=== PATIENT | female | born 1980 | race Caucasian/White ===

== ENCOUNTER 2016-10-13 16:38 | Outpatient (CLI) | payer OTHER ==
--- NOTE | 2016-10-13 19:05 | US ---
OB LIMITED HISTORY: Advanced maternal age. Hydronephrosis. SANDY check. Estimated date of delivery 11/17/2016. 35 weeks and 0 days gestation. COMPARISONS: None FINDINGS: Multiple grayscale, color-flow and duplex Doppler images during Limited ultrasound are obtained. A single intrauterine gestation is identified in a cephalic position. Placenta is anterior. Placental grade is 2. SANDY measures 14.8 cm. heart tones are noted 147 bpm. Hydronephrosis is present bilaterally. Left renal pelvis measures 1.1 cm. Right renal pelvis measures 0.7 cm. Stomach, bladder and diaphragm are unremarkable. The remainder the survey is deferred, as was performed on prior exam. IMPRESSION: Normal SANDY. Continued hydronephrosis. Correlation with outside imaging would be recommended. As the patient undoubtably has prior studies at an outside institution, if these could be digitized into the [facility] PACS, a direct comparison could be made and addendum to this report generated as clinically warrented. Findings were called to Dr. Hyman at approximately 1901 hours on 10/13/2016.
== END 2016-10-13 16:39 | disposition home or self-care (01) ==
LOC: FBC 16:38 → FBCOUT 16:38
PROVIDERS: ATTEND Family Medicine
DX: O09.523 Supervision of elderly multigravida, third trimester (principal); O36.8930 Maternal care for other specified fetal problems, third trimester, not applicable or unspecified; O09.213 Supervision of pregnancy with history of pre-term labor, third trimester; Z3A.35 35 weeks gestation of pregnancy
CPT/HCPCS: 76815; 59025; G0463

== ENCOUNTER 2016-10-21 12:30 | Outpatient (CLI) | payer OTHER ==
--- NOTE | 2016-10-21 13:49 | US ---
OB LIMITED HISTORY: SANDY check. COMPARISONS: 10/13/2016 FINDINGS: Multiple grayscale, color-flow and pulsed Doppler images during Limited ultrasound are obtained. A single intrauterine gestation is identified in a vertex position. The heart tones are present at 144 bpm. Estimated date of delivery is 11/17/2016. Fetus is 36 weeks and 1 day gestation. SANDY measures 14.75. Right renal pelvis measures 0.6 cm, measuring 0.7 cm on prior study. Left renal pelvis measures 1.1 cm, stable from prior study. Bladder and stomach are unremarkable. Remainder of the survey is deferred, as was performed on prior exam. IMPRESSION: Normal SANDY. heart tones of 144 bpm. Left greater than right hydronephrosis as above. Follow-up as clinically warranted. Findings were called to the [facility] at approximately 1345 hours on 10/21/2016.
== END 2016-10-21 13:55 | disposition home or self-care (01) ==
LOC: FBCOUT 12:30 → FBC 12:56 → FBCOUT 13:55
PROVIDERS: ATTEND Family Medicine
DX: O35.8XX0 Maternal care for other (suspected) fetal abnormality and damage, not applicable or unspecified (principal); O09.213 Supervision of pregnancy with history of pre-term labor, third trimester; Z3A.36 36 weeks gestation of pregnancy; O09.523 Supervision of elderly multigravida, third trimester

== ENCOUNTER 2016-10-26 17:05 | Outpatient (CLI) | payer OTHER ==
[2016-10-26 17:33] VITALS: BMI 24.0
--- NOTE | 2016-10-26 18:34 | US ---
ADDENDUM #1 A voicemail message was left for Dr. Anaya on 10/26/16 at 2011 hours. ORIGINAL REPORT LIMITED OB ULTRASOUND HISTORY: Assess SANDY. Limited obstetric sonography was performed. Comparison 10/21/2016. 36 weeks 6 days. FINDINGS: INTRAUTERINE GESTATION: Single live intrauterine gestation in cephalic orientation, heart rate 147 beats per minute. SANDY: 9.88 cm, compared to 14.75 cm on prior study. LEFT RENAL PELVIS: 1.6 cm in width, compared to 1.1 cm previously. IMPRESSION: Limited sonography for purposes of determining SANDY. SANDY currently 9.9 cm, at lower end of normal range. Single live intrauterine gestation in cephalic orientation. Redemonstration of left-sided pelviectasis, now 1.6 cm in width, compared to 1.1 cm on prior study.
== END 2016-10-26 18:40 | disposition home or self-care (01) ==
LOC: FBCOUT 17:05 → FBC 17:06 → FBCOUT 18:40
PROVIDERS: ATTEND Family Medicine
DX: O35.8XX0 Maternal care for other (suspected) fetal abnormality and damage, not applicable or unspecified (principal); Z3A.36 36 weeks gestation of pregnancy

== ENCOUNTER 2016-10-27 08:52 | Outpatient (CLI) | payer OTHER ==
[2016-10-27] MEDS ORDERED: LACTATED RINGERS 1,000 ML IV PRN (09:19)
[2016-10-27] MEDS ORDERED: OXYTOCIN IN NS 334 ML IV PRN (09:19)
[2016-10-27] MEDS ORDERED: OXYTOCIN 10 UNITS/ML VIAL ONE (09:54)
[2016-10-27] MEDS ORDERED: LIDOCAINE 1% (PRES FREE) 30 ML VIAL ONE (09:54)
[2016-10-27] MEDS ORDERED: MINERAL OIL 25 ML BOT ONE (09:54)
[2016-10-27 11:18] VITALS: BMI 23.3
[2016-10-27 11:26] LABS: HEMATOCRIT 41.1 % (37.0-47.0); HEMOGLOBIN 13.9 gm/l (12.0-16.0); MEAN CELL VOLUME 84.9 fl (81.0-99.0); MEAN CORPUSCULAR HEMOGLOBIN 28.7 pg (27.0-31.0); MEAN CORPUSCULAR HGB CONC 33.8 g/dl (33.0-37.0); RED CELL DISTRIBUTION WIDTH 13.3 % (11.5-14.5)
[2016-10-27] MEDS ORDERED: ONDANSETRON 4 MG/2ML 2 ML VIAL IV PRN (12:46)
[2016-10-27] MEDS ORDERED: LIDOCAINE Viscous 2% 15 ML UDCUP ONE (13:05)
--- NOTE | 2016-10-27 18:12 | PCMOBT ---
OB Triage - Subjective KATHE CABALLERO is a 36 year old at 38 who presents to L & D triage c/o contractions and possible leakage of fluid. RN did ROM plus and that was negative. She was admitted for observation due to her change in cervix from 1 cm yesterday to 3.5 cm today but her contractions spaced out over the day and her pain level did not escalate as expected for active labor. Review of Systems: Nausea, Movement, LOF, Ctx - Physical Exam General: Other (mild distress due to pain) HEENT: Normocephalic Neurological: Alert, Lethargic, Oriented X4 Respiratory: Clear to Auscultation Cardiac: Regular Rate, Regular Rhythm, No Murmurs Abdomen: Soft, Gravid Extremeties: No Deformities Skin: No Rash Contractions: Present - Pelvic Exam External Genitalia: Normal Appearance Cervix: Other (3.5 cm/60%/-2 per RN) Uterus: Gravid - Heart Tones Baseline: 145 Variability: Moderate Accelerations: Present Decelerations: Non-Present - Assessment/ Plan 36 year old G3 P at 38 here for contractions 1. Not in active labor at this time Return precautions given: including that she should return if she has decreased movement, if she has LOF, vaginal bleeding or contractions such that she thinks she's in labor. Jerry Calix MD
[2016-10-27] MEDS ORDERED: FAMOTIDINE 20 MG TABLET PO SCH (19:00)
== END 2016-10-27 15:15 | disposition home or self-care (01) ==
LOC: FBCOUT 08:52 → FBC 08:52 → UNDOADMIN 09:20 → FBCOUT 09:20 → FBC 09:20 → FBCOUT 15:15
PROVIDERS: ATTEND Family Medicine
DX: O47.1 False labor at or after 37 completed weeks of gestation (principal); Z3A.37 37 weeks gestation of pregnancy
CPT/HCPCS: 85027; 59025; G0463